=== PATIENT | female | born 1950 | race American Indian/Alaskan Native ===

== ENCOUNTER 2016-07-08 10:34 | Outpatient (CLI) | payer BC ==
[2016-07-08] MEDS ORDERED: XYLOCAINE TOPICAL 2% TP ONE ×2 (11:28→15:09)
== END 2016-07-08 10:35 | disposition home or self-care (01) ==
LOC: WOUND 10:34
PROVIDERS: ATTEND Podiatrist
DX: I87.311 Chronic venous hypertension (idiopathic) with ulcer of right lower extremity (principal); L97.812 Non-pressure chronic ulcer of other part of right lower leg with fat layer exposed; Z87.891 Personal history of nicotine dependence
CPT/HCPCS: 11042; 87075; 87076; 87116; 87186; G0463

== ENCOUNTER 2016-07-09 12:34 | Outpatient (CLI) | payer BC, MEDICARE ==
--- NOTE | 2016-07-10 16:51 | Vascular Lab Report ---
Right Lower Extremity Venous Duplex Study: Reason for Exam: Right leg swelling. Comments on the Right: All veins visualized are freely compressible without evidence of internal echogenicity. Flow is spontaneous and phasic throughout. No evidence of acute or chronic thrombus is seen in any of the vessels visualized. Comments on the Left: A limited duplex study was done of the proximal veins of the left lower extremity. All veins visualized are freely compressible without evidence of internal echogenicity. Flow is spontaneous and phasic throughout. No evidence of acute or chronic thrombus is seen in any of the vessels visualized. Impression: No evidence of acute or chronic deep venous thrombosis in the right lower extremity.
== END 2016-07-09 12:35 | disposition home or self-care (01) ==
LOC: VAS 12:34
PROVIDERS: ATTEND Podiatrist
DX: M79.604 Pain in right leg (principal)

== ENCOUNTER 2016-07-11 13:08 | Outpatient (CLI) | payer BC, MEDICARE | END 2016-07-11 13:09 | disposition home or self-care (01) | LOC: WOUND 13:08 | PROVIDERS: ATTEND Podiatrist | DX: I87.311 Chronic venous hypertension (idiopathic) with ulcer of right lower extremity (principal); L97.811 Non-pressure chronic ulcer of other part of right lower leg limited to breakdown of skin; L03.115 Cellulitis of right lower limb; Z87.891 Personal history of nicotine dependence | CPT/HCPCS: 99213; G0463 ==

== ENCOUNTER 2016-07-15 10:41 | Outpatient (CLI) | payer BC, MEDICARE ==
[2016-07-15] MEDS ORDERED: XYLOCAINE TOPICAL 4% TP ONE ×2 (10:53→14:45)
== END 2016-07-15 10:42 | disposition home or self-care (01) ==
LOC: WOUND 10:41
PROVIDERS: ATTEND Podiatrist
DX: I87.311 Chronic venous hypertension (idiopathic) with ulcer of right lower extremity (principal); L97.812 Non-pressure chronic ulcer of other part of right lower leg with fat layer exposed; I87.2 Venous insufficiency (chronic) (peripheral); Z87.891 Personal history of nicotine dependence

== ENCOUNTER 2016-07-21 14:41 | Outpatient (CLI) | payer BC, MEDICARE ==
[2016-07-21] MEDS ORDERED: XYLOCAINE TOPICAL 4% TP ONE ×2 (15:25→16:33)
== END 2016-07-21 14:42 | disposition home or self-care (01) ==
LOC: WOUND 14:41
PROVIDERS: ATTEND Surgery
DX: I87.2 Venous insufficiency (chronic) (peripheral) (principal); L97.821 Non-pressure chronic ulcer of other part of left lower leg limited to breakdown of skin; L97.811 Non-pressure chronic ulcer of other part of right lower leg limited to breakdown of skin; Z87.891 Personal history of nicotine dependence
CPT/HCPCS: 29580

== ENCOUNTER 2016-07-28 14:36 | Outpatient (CLI) | payer BC, MEDICARE ==
[2016-07-28] MEDS ORDERED: XYLOCAINE TOPICAL 2% TP ONE ×2 (14:55→16:00)
== END 2016-07-28 14:37 | disposition home or self-care (01) ==
LOC: WOUND 14:36
PROVIDERS: ATTEND Internal Medicine
DX: I87.311 Chronic venous hypertension (idiopathic) with ulcer of right lower extremity (principal); L97.811 Non-pressure chronic ulcer of other part of right lower leg limited to breakdown of skin; L03.115 Cellulitis of right lower limb; Z87.891 Personal history of nicotine dependence

== ENCOUNTER 2016-08-04 14:35 | Outpatient (CLI) | payer BC, MEDICARE ==
[2016-08-04] MEDS ORDERED: XYLOCAINE TOPICAL 2% TP ONE ×2 (14:41→14:47)
== END 2016-08-04 14:36 | disposition home or self-care (01) ==
LOC: WOUND 14:35
PROVIDERS: ATTEND Internal Medicine
DX: I87.311 Chronic venous hypertension (idiopathic) with ulcer of right lower extremity (principal); L97.812 Non-pressure chronic ulcer of other part of right lower leg with fat layer exposed; Z87.891 Personal history of nicotine dependence

== ENCOUNTER 2016-08-11 14:37 | Outpatient (CLI) | payer BC, MEDICARE ==
[2016-08-11] MEDS ORDERED: XYLOCAINE TOPICAL 4% TP ONE (14:52)
== END 2016-08-11 14:38 | disposition home or self-care (01) ==
LOC: WOUND 14:37
PROVIDERS: ATTEND Internal Medicine
DX: I87.311 Chronic venous hypertension (idiopathic) with ulcer of right lower extremity (principal); L97.812 Non-pressure chronic ulcer of other part of right lower leg with fat layer exposed; Z87.891 Personal history of nicotine dependence

== ENCOUNTER 2016-08-18 14:20 | Outpatient (CLI) | payer BC, MEDICARE | END 2016-08-18 14:21 | disposition home or self-care (01) | LOC: WOUND 14:20 | PROVIDERS: ATTEND Surgery | DX: I87.311 Chronic venous hypertension (idiopathic) with ulcer of right lower extremity (principal); L97.812 Non-pressure chronic ulcer of other part of right lower leg with fat layer exposed; Z87.891 Personal history of nicotine dependence | CPT/HCPCS: 99214; G0463 ==

== ENCOUNTER 2016-09-08 13:32 | Outpatient (CLI) | payer BC, MEDICARE ==
[2016-09-08] MEDS ORDERED: XYLOCAINE TOPICAL 4% TP ONE (14:11)
== END 2016-09-08 13:33 | disposition home or self-care (01) ==
LOC: WOUND 13:32
PROVIDERS: ATTEND Internal Medicine
DX: I87.311 Chronic venous hypertension (idiopathic) with ulcer of right lower extremity (principal); L97.912 Non-pressure chronic ulcer of unspecified part of right lower leg with fat layer exposed; L84 Corns and callosities; M79.661 Pain in right lower leg
CPT/HCPCS: 11055; 99213; G0463

== ENCOUNTER 2017-03-06 13:28 | Outpatient (CLI) | payer BC, MEDICARE ==
--- NOTE | 2017-03-06 14:03 | Mammography Report ---
LEFT DIGITAL DIAGNOSTIC MAMMOGRAM : 03/06/17 13:28:00 CLINICAL: Recalled for asymmetry. COMPARISON:11/27/16 screening FINDINGS: ML and CC spot magnification nipple views were performed and are negative. IMPRESSION: Negative Mammogram. BI-RADS CATEGORY: 1 -- Negative RECOMMENDATION: Routine mammographic screening in one year. ACR BI-RADS MAMMOGRAPHIC CODES: 0 = Needs additional imaging evaluation; 1 = Negative; 2 = Benign; 3 = Probably benign; 4 = Suspicious; 5 = Malignant; 6 = Known biopsy-proven malignancy COMMENT: 1. Dense breast tissue, i.e., adenosis, fibrocystic changes, etc., may obscure an underlying neoplasm. 2. Approximately 10% of cancers are not detected with mammography. 3. A negative mammography report should not delay biopsy if a clinically suspicious mass is present. COMMENT: Patient follow-up letters are generated via our [employer] application.
== END 2017-03-06 13:29 | disposition home or self-care (01) ==
LOC: MAMMO 13:28
PROVIDERS: ATTEND Internal Medicine
DX: R92.8 Other abnormal and inconclusive findings on diagnostic imaging of breast (principal)
CPT/HCPCS: G0206-LT

== ENCOUNTER 2019-04-20 13:01 | Outpatient (CLI) | payer MEDICARE ==
--- NOTE | 2019-04-20 15:55 | Mammography Report ---
DIGITAL SCREENING MAMMOGRAM WITH CAD, 04/20/2019 INDICATION: Routine screening mammography. TECHNIQUE: Digital bilateral 2D mammography was obtained in the craniocaudal and mediolateral obliq ue projections. This examination was interpreted with the benefit of Computer-Aided Detection analysi s. COMPARISON: 03/31/2018 FINDINGS: Breast Density: The breasts are heterogeneously dense, which may obscure small masses. There is no evidence of dominant mass, suspicious calcifications or architectural distortion in eithe r breast. IMPRESSION: No mammographic evidence of malignancy. Follow up recommendation: Routine yearly BI-RADS Category 1: Negative. A "normal" or negative report should not discourage follow up or biopsy of a clinically significant f inding. A written summary of these findings will be mailed to the patient. The patient will be entered into a mammography reporting system which will generate a reminder letter for the patient's next appointmen t at the appropriate interval. [employer] recommends yearly mammograms starting at age 40 and continuing as l jonatan as a woman is in good health. Breast MRI is recommended for women with an approximate 20-25% or greater lifetime risk of breast cancer, including women with a strong family history of breast or ova mt cancer or who have been treated for Hodgkin's disease. Signer Name: Steve Dela Cruz MD Signed: 04/20/2019 3:50 PM Workstation Name: [id number]
== END 2019-04-20 13:02 | disposition home or self-care (01) ==
LOC: MAMMO 13:01
DX: Z12.31 Encounter for screening mammogram for malignant neoplasm of breast (principal)
CPT/HCPCS: 77067